=== PATIENT | female | born 1950 | race Caucasian/White ===

== ENCOUNTER → 2016-08-11 | Outpatient (CLI) | payer OTHER, MEDICAID ==
--- NOTE | 2016-08-11 11:58 | MA ---
Screening Digital Mammogram With iCAD Analysis Clinical Indications: Routine screening. Technique: Standard cephalocaudal and mediolateral oblique projections are obtained. This examination is processed by the iCAD computer aided detection system. Comparison: July 2015, May 2014, March 2013 and October 2011, September 2010. Breast density: Type B; Scattered fibroglandular densities. Findings: CAD was reviewed. No masses, suspicious calcifications or other signs of malignancy are see n. There has been no significant change in the appearance of either breast. Vascular calcifications a re noted. Impression: Negative mammogram. BI-RADS 1. Recommendation: Routine mammographic screening in one year. [facility] will send a result letter to the patient. Negative mammography should not preclude additional workup of a clinically suspicious finding. The patient's information is entered into a reminder system with a target due date for her next mammo gram.
== END ==
LOC: CIMAGING 09:57
DX: Z12.31 Encounter for screening mammogram for malignant neoplasm of breast (principal)
CPT/HCPCS: G0202

== ENCOUNTER → 2016-09-22 | Outpatient (CLI) | payer OTHER, MEDICAID | LOC: CIMAGING 10:49 | PROVIDERS: ATTEND Family Medicine | DX: D17.1 Benign lipomatous neoplasm of skin and subcutaneous tissue of trunk (principal) ==

== ENCOUNTER → 2016-11-17 | Outpatient (CLI) | payer OTHER, MEDICAID | LOC: BHFA 14:15 | PROVIDERS: ATTEND Internal Medicine Interventional Cardiology | DX: I10 Essential (primary) hypertension (principal); I70.0 Atherosclerosis of aorta ==

== ENCOUNTER → 2016-11-26 | Outpatient (CLI) | payer OTHER, MEDICAID | LOC: BHFA 11:30 | PROVIDERS: ATTEND Internal Medicine Cardiovascular Disease | DX: I10 Essential (primary) hypertension (principal) ==

== ENCOUNTER → 2017-06-26 | Outpatient (CLI) | payer OTHER, MEDICAID | LOC: CIMAGING 16:35 | PROVIDERS: ATTEND Family Medicine | DX: D25.9 Leiomyoma of uterus, unspecified (principal) | CPT/HCPCS: 76856-PO ==

== ENCOUNTER → 2017-08-14 | Outpatient (CLI) | payer OTHER, MEDICAID | LOC: CIMAGING 15:08 | DX: Z12.31 Encounter for screening mammogram for malignant neoplasm of breast (principal) ==

== ENCOUNTER → 2018-02-18 | Outpatient (CLI) | payer OTHER, MEDICAID | LOC: BHFA 11:30 | PROVIDERS: ATTEND Internal Medicine Cardiovascular Disease | DX: I10 Essential (primary) hypertension (principal) ==

== ENCOUNTER 2018-03-15 | Emergency (ER) | payer OTHER, MEDICAID | END 2018-03-15 20:52 | disposition home or self-care (01) ==

== ENCOUNTER 2018-04-13 18:27 | Emergency (ER) | payer OTHER, MEDICAID ==
--- NOTE | 2018-04-13 18:50 | EDPHY ---
H & P Time Seen by Provider: 04/13/18 18:33 HPI/ROS: CHIEF COMPLAINT: Swelling on the right elbow HISTORY OF PRESENT ILLNESS: Patient noticed yesterday, she has been moving a lot of things, pretty sure she bumped it on the wall or some other structure. She today noticed a bruise which is swollen and somewhat firm on the elbow. Not associated with bony tenderness or restriction in range of motion at the elbow. She does have history of easy bruising for several decades, she does not bleed when she brushes her teeth. REVIEW OF SYSTEMS: Not dizzy or lightheaded. No weakness or numbness in the right hand. No right hand pain. PAST MEDICAL HISTORY: Includes asthma, hypertension, bilateral total hip arthroplasty. Social history: Primary care is Luh Lopez General Appearance: Alert and conversant, cooperative. Right hand is normal in appearance, normal radial pulse, normal motor sensory and vascular. She has 2x 1 cm bruises on the right forearm and area of ecchymosis on the lateral side of the right elbow with some firm area of swelling under the ecchymosis but no fluctuance. No bony tenderness in the upper extremity. Good range of motion of shoulder elbow wrist and hand. Compartments are soft. She also some scattered bruising on her shins which she said is typical for her. Emergency Department course/MDM: Does not have evidence of fracture or septic joint. She does have a long history of easy bruising and is scheduled to see her primary care provider next week. I offered to check a CBC today but she says she will get it done of through her primary care provider next week. I warned her that this is an important part of her workup to ensure that her platelet count is normal. However she does have a long history of easy bruising and this isn't really out of normal range for her except for the fact that her elbow under the bruising is a little bit swollen and firm. The area of ecchymosis on the elbow is not tender to palpation. There is no surrounding redness or lymphangitis. I think infection or septic joint or fracture are all unlikely. Patient states she is comfortable with no x-ray, will do the CBC next week at her provider's office. Smoking Status: Never smoked Constitutional: Initial Vital Signs Temperature (C) 36.9 C 04/13/18 18:32 Heart Rate 74 04/13/18 18:32 Respiratory Rate 16 04/13/18 18:32 O2 Sat (%) 94 04/13/18 18:32 O2 Delivery Mode Room Air Allergies/Adverse Reactions: latex Allergy (Verified 04/13/18 18:36) cephalexin [From Keflex] Adverse Reaction (Verified 04/13/18 18:36) Home Medications: Medication Instructions Recorded Albuterol 05/10/14 Qvar 80 (RX) 05/10/14 Triamterene-Hctz 37.5-25 mg Cp 05/10/14 Ranitidine HCl 12/16/14 Aspirin 81mg (*) 03/15/18 Cephalexin [Keflex (*)] 500 mg PO Q6 7 Days cap 03/15/18 MDM/Departure - Depart Disposition: Home, Routine, Self-Care Clinical Impression: Traumatic hematoma of right elbow Qualifiers: Encounter type: initial encounter Qualified Code(s): S50.01XA - Contusion of right elbow, initial encounter Condition: Good Instructions: Hematoma (ED) Referrals: Luh Lopez, ELECT[employer]OR CONTR[employer]S ASSEMBLER [Certified Nurse Practioner] - As per Instructions (When you see your primary care provider next week make sure that she orders a complete blood count, because of your continued easy bruising.)
[2018-04-13 18:53] VITALS: BP 162/94
== END 2018-04-13 19:08 | disposition home or self-care (01) ==
LOC: CED 18:27
DX: S50.01XA Contusion of right elbow, initial encounter (principal); J45.909 Unspecified asthma, uncomplicated; I10 Essential (primary) hypertension; Z91.040 Latex allergy status; X58.XXXA Exposure to other specified factors, initial encounter; Y93.89 Activity, other specified

== ENCOUNTER → 2018-05-04 | Outpatient (CLI) | payer OTHER, MEDICAID | LOC: CIMAGING 10:35 | PROVIDERS: ATTEND Nurse Practitioner | DX: M25.521 Pain in right elbow (principal) | CPT/HCPCS: 73070-PO ==

== ENCOUNTER → 2018-09-10 | Outpatient (CLI) | payer OTHER, MEDICAID | LOC: CIMAGING 13:20 | PROVIDERS: ATTEND Nurse Practitioner | DX: R92.8 Other abnormal and inconclusive findings on diagnostic imaging of breast (principal) ==

== ENCOUNTER → 2018-09-28 | Outpatient (CLI) | payer OTHER, MEDICAID | LOC: BMCIMAGING 15:57 | PROVIDERS: ATTEND Internal Medicine Rheumatology | DX: M89.8X1 Other specified disorders of bone, shoulder (principal) ==

== ENCOUNTER → 2018-10-12 | Outpatient (CLI) | payer OTHER, MEDICAID | LOC: CIMAGING 08:37 | PROVIDERS: ATTEND Internal Medicine Rheumatology | DX: M19.011 Primary osteoarthritis, right shoulder (principal); M11.211 Other chondrocalcinosis, right shoulder; M50.33 Other cervical disc degeneration, cervicothoracic region; M51.34 Other intervertebral disc degeneration, thoracic region | CPT/HCPCS: 73200-PO ==

== ENCOUNTER 2018-12-15 18:42 | Emergency (ER) | payer OTHER, MEDICAID ==
--- NOTE | 2018-12-15 18:47 | EDPHY ---
H & P Time Seen by Provider: 12/15/18 18:47 HPI/ROS: HPI CHIEF COMPLAINT: left Foot laceration. HISTORY OF PRESENT ILLNESS: This patient is a 68-year-old female otherwise healthy does have a history of hypertension, but not currently on blood pressure medication presents emergency room left foot laceration. She states she sustained this around 8:00 a.m.. She states she stood up on the metal bed frame and cut the bottom of her left foot the area that is cut is at the bottom of her foot at the base of her left great toe. She sustained a 3 cm laceration. This happened 8:00 a.m. This morning. She did not think was very large or needed repair. She now presents emergency room stating that she was able to look at clearly in it is rather large decided come to the emergency room to have it evaluated. It is now 730 at night. This happened close to 12 hr ago. She has been walking on it all day in [employer]. She did have a Band- Aid over it. Here in emergency room there is no tripp pus coming from it, no significant signs of infection. She denies any other complaints. She does report to me her tetanus shot is up- to-date. Past Medical History: Hypertension not on blood pressure medication Past Surgical History: Denies recent surgical history Social History: Denies drugs alcohol tobacco. Family History: Noncontributory ROS REVIEW OF SYSTEMS: 10 Systems were reviewed and negative with the exception of the elements mentioned in the history of present illness. Exam Constitutional triage nursing summary reviewed, vital signs reviewed, awake/ alert. Eyes normal conjunctivae and sclera, EOMI, PERRLA. HENT normal inspection, atraumatic, moist mucus membranes, no epistaxis, neck supple/ no meningismus, no raccoon eyes. Respiratory clear to auscultation bilaterally, normal breath sounds, no respiratory distress, no wheezing. Cardiovascular rate normal, regular rhythm, no murmur, no edema, distal pulses normal. Gastrointestinal soft, non-tender, no rebound, no guarding, normal bowel sounds, no distension, no pulsatile mass. Genitourinary no CVA tenderness. Musculoskeletal left foot: Good distal pulse, good cap refill, bottom of the left foot over the webspace of the left great toe there is a 3 cm laceration present. No tripp pus. No significant redness. No significant swelling. Does not involve the tendon. No obvious bony involvement no foreign bodies visualized. Good cap refill, warm extremity, good distal pulse. Able to have full flexion and extension of the great toe. no midline vertebral tenderness, full range of motion, no calf swelling, no tenderness of extremities, no meningismus, good pulses, neurovascularly intact. Skin pink, warm, & dry, no rash, skin atraumatic. Neurologic awake, alert and oriented x 3, AAOx3, moves all 4 extremities equally, motor intact, sensory intact, CN II-XII intact, normal cerebellar, normal vision, normal speech. Psychiatric normal mood/affect. Heme/Lymph/Immune no lymphadenopathy. Differential Diagnosis: Includes but is not limited to in a particular order left foot wound, left foot laceration, left foot cellulitis Medical Decision Making: Plan for this patient will copiously irrigating clean her foot and wound. Her tetanus shot is up-to-date. [place] lead placed on antibiotics Bactrim, she is allergic to Keflex. I discussed at length about risk for infection. I also discussed risk versus benefit of suturing. The wound is 3 cm in the webspace of her left great toe and easily opens with toe movement. After long discussion with the patient going over risk versus benefit of closing the wound given that it has been open for close to 12 hr and given that she has been walking on it with sandals and dirt on the bottom of her feet I did explain that is at very high risk for infection. She understands the risk of infection. She understands that if we placed 2 sutures to loosely approximate the wound edges that could still get infected. After long discussion with the patient risk versus benefit she would like to place 2 sutures to closely approximate wound edges but not tightly sealed. She does understand by placing 2 sutures that could put at further risk for infection. Would recommend obviously keeping the wound very clean, clean foot hygiene, walking boot for protection, loose approximation with 2 sutures watch closely for infection, empiric antibiotics. Discussed at length the patient this is how she would like to proceed. The other option is to not place any sutures, allow the wound continued to heal by secondary intention. This was discussed at length the patient. Re-evaluation: Patient's left foot was soaked and irrigated clean for 30 min. Warm soapy water pain or wound was extensively irrigated out, by inside sales territory manager. Laceration Repair Procedure: Verbal Consent was obtained, Under sterile conditions, The patient had lidocaine with/out epinephrine used approximately 4ccs to local anesthetize the Left great toe, sole side, webspace 3CM Laceration. The wound was copiously irrigated with sterile fluid, the wound was explored for foreign bodies there were none visualized, the wound was explored with a sterile glove to the base. There are no deep structures involved, including no arterial injury. TWO 6.O PROLENE interrupted Sutures were placed in this patient's laceration. She had good close approximation of the wound edges. She Tolerated this well. Patient understands watch closely for infection. 2 sutures were placed to loosely approximate the wound edges. The walking boot will be applied to help with pressure being off of the toe. Patient understands suture delicate. And it is in the webspace flexion extension area of the great toe. She understands it could be easily to open the wound or with the sutures. Antibiotics as prescribed she understands to daily checked the wound. Watch for signs of infection. If she sees signs of infection, return to er. Patient placed in Walking boot. She tolerated this well. Wound was cleaned. TWO sutures in place. Return precautions discussed. Source: Patient - Personal History Tetanus Vaccine Date: 2013 - Medical/Surgical History Hx Asthma: Yes Hx Chronic Respiratory Disease: No Hx Diabetes: No Hx Cardiac Disease: No Hx Renal Disease: No Hx Cirrhosis: No Hx Alcoholism: No Hx HIV/AIDS: No Hx Splenectomy or Spleen Trauma: No Other PMH: Celiac. Bone spur in left heel. asthma, hbp. bilat hip replacements, cardiac cath. sleep apnea. 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 - Social History Smoking Status: Never smoked Constitutional: Initial Vital Signs Temperature (C) 37.0 C 12/15/18 18:52 Heart Rate 87 12/15/18 18:52 Respiratory Rate 16 12/15/18 18:52 Blood Pressure 150/87 H 12/15/18 18:52 O2 Sat (%) 93 12/15/18 18:52 O2 Delivery Mode Room Air Allergies/Adverse Reactions: latex Allergy (Verified 12/15/18 18:48) cephalexin [From Keflex] Adverse Reaction (Verified 12/15/18 18:48) Home Medications: Medication Instructions Recorded Albuterol 05/10/14 Qvar 80 (RX) 10/15/14 Ranitidine HCl 12/16/14 Aspirin 81mg (*) 03/15/18 Sulfamethox/Tmp 800/160 mg 1 tab PO BID@1000,2200 #14 tab 12/15/18 [Bactrim Ds] Medical Decision Making - Diagnostics Imaging Results: Imaging Impressions Foot X-Ray 12/15/18 19:09 Impression: There is no radiographic evidence of acute osteomyelitis. - Data Points Medications Given: Discontinued Medications Trimethoprim/Sulfamethoxazole (Bactrim Ds Prepack#2) 1 btl TAKEHOME EDNOW ONE Stop: 12/15/18 19:10 Last Admin: 12/15/18 19:25 Dose: 1 btl Trimethoprim/Sulfamethoxazole (Bactrim Ds) 1 ea PO EDNOW ONE PRN Reason: Protocol Stop: 12/15/18 19:10 Last Admin: 12/15/18 19:25 Dose: 1 ea Departure - Departure Disposition: Home, Routine, Self-Care Clinical Impression: Laceration Condition: Good Instructions: Sulfamethoxazole/Trimethoprim (By mouth), Care For Your Stitches (ED), Laceration (ED) Additional Instructions: 1. Watch closely for infection. 2. Antibiotics as prescribed. 3. Watch for worsening pain, swelling, drainage, fever, pus. 4. Walking boot for comfort and protection 5. Keep your foot very clean. 6. Sutures need to be removed in 12-14 days. Referrals: Luh Lopez, PRODUCE TEAM MEMBER [Primary Care Provider] - As per Instructions Prescriptions: Sulfamethox/Tmp 800/160 mg [Bactrim Ds] 1 tab PO BID@1000,2200 #14 tab
[2018-12-15] MEDS ORDERED: SULFAMETHOX/TMP 800/160 MG 1 TAB PO ONE (19:09)
[2018-12-15] MEDS ORDERED: SULFAMET/TMP DS PREPACK#2 BTL TAKEHOME ONE (19:09)
[2018-12-15] MEDS ORDERED: BACITRACIN OINTMENT 1 PACKET TP ONE ×2 (20:03→20:28)
[2018-12-15 20:39] VITALS: BP 144/78
[2018-12-15] MEDS ORDERED: IBUPROFEN 600 MG TAB PO ONE (21:19)
== END 2018-12-15 21:22 | disposition home or self-care (01) ==
LOC: CED 18:42
PROC: 0HQNXZZ Repair Left Foot Skin, External Approach (ICD-10-PCS; principal; 2018-12-15)
DX: S91.312A Laceration without foreign body, left foot, initial encounter (principal); I10 Essential (primary) hypertension; W26.8XXA Contact with other sharp object(s), not elsewhere classified, initial encounter
CPT/HCPCS: 12002; 73630; 99283; L4386